=== PATIENT | male | born 1975 | race Caucasian/White ===

== ENCOUNTER 2019-09-17 20:16 | Emergency (ER) | payer BC ==
[~2019-09-17] VITALS: Ht 182.9 cm; Wt 140.8 kg
[2019-09-17 20:21] VITALS: Ht 182.9 cm; Wt 140.8 kg
[2019-09-17 21:59] VITALS: BP 140/80
== END 2019-09-17 21:59 | disposition home or self-care (01) ==
LOC: ED 20:16
DX: J02.9 Acute pharyngitis, unspecified (principal)